=== PATIENT | female | born 1965 | race Caucasian/White ===

== ENCOUNTER → 2016-06-10 | Outpatient (CLI) | payer OTHER ==
[~2016-06-10] MED LIST: METO-217 PO; NUTRTAB40 PO; RELIVE PO
[2016-06-10 09:56] LABS: ALT/SGPT 34 U/L (12-78); AST/SGOT 14 U/L (15-37); BLOOD UREA NITROGEN 19 mg/dl (7-18); CALCIUM 8.9 mg/dl (8.5-10.1); CARBON DIOXIDE 33 mmol/L (21-32); CHLORIDE 108 mmol/L (98-107); CREATININE 0.83 mg/dl (0.60-1.20); GLUCOSE 94 mg/dl (70-99); POTASSIUM 3.8 mmol/L (3.5-5.1); SODIUM 144 mmol/L (136-145)
[2016-06-10 09:59] LABS: ALB/GLOB RATIO 1.1 (0.9-2); ALKALINE PHOSPHATASE 58 U/L (45-117); CHOLESTEROL 166 mg/dl (0-200); CHOLESTEROL/HDL RATIO 2.7; HDL CHOLESTEROL 61 mg/dl; LDL CHOLESTEROL CALCULATED 85 mg/dl; TRIGLYCERIDES 98 mg/dl (0-150); VERY LOW DENSITY LIPOPROT CALC 20 mg/dl
== END | disposition home or self-care (01) ==
LOC: C.LAB1850 07:38
PROVIDERS: ATTEND Nurse Practitioner Family
DX: E78.00 Pure hypercholesterolemia, unspecified (principal)

== ENCOUNTER → 2016-06-23 | Outpatient (CLI) | payer OTHER ==
--- NOTE | 2016-06-23 11:00 | DIAGNOSTIC IMAGING REPORT ---
ULTRASOUND-GUIDED FINE-NEEDLE ASPIRATION OF A LEFT THYROID NODULE HISTORY: Left thyroid nodule. LEFT THYROID NODULE COMPARISON: Thyroid ultrasound 12/16/2015. PROCEDURE: Written informed consent was obtained. The neck was prepped and draped in the usual sterile fashion. 1% lidocaine was used for local anesthesia. A total of 2 passes using a 25-gauge needle were made through the left thyroid nodule under ultrasound guidance. Specimens were given to the on-site pathologist. The specimens were nondiagnostic with primarily diluted blood. Both needle passes were seen within the nodule. However, given the return of primarily blood, the decision was to and the study. Follow-up thyroid ultrasound can be used to ensure stability.. The patient tolerated the procedure well. There were no immediate complications. IMPRESSION: Status post ultrasound-guided fine-needle aspiration of a left thyroid nodule. Specimens were inadequate for diagnosis and only returning diluted blood despite passes made through the center of the nodule. The procedure was terminated. A follow-up thyroid ultrasounds are recommended to ensure stability. Electronically signed by: Naren Abdullahi M.D. 06/23/2016 10:59 AM Dictated Date/Time: 06/23/2016 10:56 AM
== END | disposition home or self-care (01) ==
LOC: C.ULTR 09:35
PROVIDERS: ATTEND Nurse Practitioner Family
DX: E04.1 Nontoxic single thyroid nodule (principal)

== ENCOUNTER → 2016-06-23 | Outpatient (CLI) | payer OTHER ==
[2016-06-23 12:55] LABS: THYROID STIMULATING HORMONE 0.645 uIu/ml (0.300-4.500)
[2016-06-28 15:30] LABS: MICROSOMAL AB 3 IU/ML (<9); THYROGLOBULIN 56.8 NG/ML (2.8-40.9); TSI <89 % baseline (<140)
== END | disposition home or self-care (01) ==
LOC: C.LAB1850 10:56
PROVIDERS: ATTEND Nurse Practitioner Family
DX: E04.1 Nontoxic single thyroid nodule (principal)

== ENCOUNTER → 2016-07-15 | Outpatient (CLI) | payer OTHER ==
[2016-07-15 09:52] LABS: THYROID STIMULATING HORMONE 1.16 uIu/ml (0.300-4.500)
== END | disposition home or self-care (01) ==
LOC: C.LAB1850 07:23
PROVIDERS: ATTEND Internal Medicine Endocrinology, Diabetes & Metabolism
DX: S09.90XA Unspecified injury of head, initial encounter (principal); X58.XXXA Exposure to other specified factors, initial encounter; N95.2 Postmenopausal atrophic vaginitis; R20.2 Paresthesia of skin; R53.83 Other fatigue

== ENCOUNTER → 2016-07-27 | Outpatient (CLI) | payer OTHER ==
--- NOTE | 2016-07-28 12:55 | MAMMOGRAPHY REPORT ---
BILATERAL DIGITAL SCREENING MAMMOGRAM TOMOSYNTHESIS WITH CAD: 07/27/2016 CLINICAL HISTORY: Routine screening. Patient has no complaints. TECHNIQUE: Breast tomosynthesis in addition to standard 2D mammography was performed. Current study was also evaluated with a Computer Aided Detection (CAD) system. COMPARISON: Comparison is made to exams dated: 05/10/2013 mammogram - [facility] an d 12/26/2006 mammogram - [facility]. BREAST COMPOSITION: The tissue of both breasts is heterogeneously dense, which may obscure small mas ses. FINDINGS: No suspicious masses, calcifications, or areas of architectural distortion are noted in ei ther breast. There has been no significant interval change compared to prior exams. IMPRESSION: ACR BI-RADS CATEGORY 1: NEGATIVE There is no mammographic evidence of malignancy. A 1 year screening mammogram is recommended. The pa tient will receive written notification of the results. Approximately 10% of breast cancers are not detected with mammography. A negative mammographic report should not delay biopsy if a clinically suggestive mass is present. Natasha Davis M.D. ah/:07/28/2016 07:37:08 [employer] Inspector: Indigo PAGE(R)(M), [facility] letter sent: Normal 1/2 BI-RADS Code: ACR BI-RADS Category 1: Negative
== END | disposition home or self-care (01) ==
LOC: C.MAMM 17:04
PROVIDERS: ATTEND Obstetrics & Gynecology
DX: Z12.31 Encounter for screening mammogram for malignant neoplasm of breast (principal)

== ENCOUNTER → 2016-11-16 | Outpatient (CLI) | payer OTHER ==
[2016-11-16 11:34] LABS: THYROID STIMULATING HORMONE 0.286 uIu/ml (0.300-4.500)
== END | disposition home or self-care (01) ==
LOC: C.LABBC 07:32
PROVIDERS: ATTEND Internal Medicine Endocrinology, Diabetes & Metabolism
DX: E03.9 Hypothyroidism, unspecified (principal)

== ENCOUNTER → 2017-01-18 | Outpatient (CLI) | payer OTHER | END | disposition home or self-care (01) | LOC: C.PAPS 11:33 | PROVIDERS: ATTEND Obstetrics & Gynecology | DX: Z12.4 Encounter for screening for malignant neoplasm of cervix (principal) ==

== ENCOUNTER → 2017-04-04 | Outpatient (CLI) | payer OTHER | END | disposition home or self-care (01) | LOC: C.PATHSPEC 11:58 | PROVIDERS: ATTEND Plastic Surgery | DX: L98.9 Disorder of the skin and subcutaneous tissue, unspecified (principal) ==

== ENCOUNTER → 2017-05-26 | Outpatient (CLI) | payer OTHER | END | disposition home or self-care (01) | LOC: C.LAB1850 07:51 | PROVIDERS: ATTEND Internal Medicine Endocrinology, Diabetes & Metabolism | DX: E55.9 Vitamin D deficiency, unspecified (principal); E03.8 Other specified hypothyroidism ==